=== PATIENT | male | born 2000 | race Two or more races ===

== ENCOUNTER 2020-12-04 21:22 | Emergency (ER) | payer OTHER ==
[~2020-12-04] VITALS: Ht 175.3 cm; Wt 54.4 kg
[~2020-12-04 21:22] MED LIST: ALBUPOW26
[2020-12-04 23:37] VITALS: BP 109/65
== END 2020-12-05 00:58 | disposition home or self-care (01) ==
LOC: ER 21:22
DX: L03.113 Cellulitis of right upper limb (principal)